=== PATIENT | male | born 1965 | race Hispanic/Latino ===

== ENCOUNTER 2018-06-18 07:31 | Day surgery (SDC) | payer BC ==
[2018-06-10 14:30] VITALS: BMI 36.2
[2018-06-18] MEDS ORDERED: Propofol 10 mg/ml Inj (20 ML) ONE (10:02)
[2018-06-18] MEDS ORDERED: Lidocaine 1% Inj (20ml) ONE (10:03)
[2018-06-18] MEDS ORDERED: Etomidate 20 mg/10ml Inj IV ONE (10:21)
[2018-06-18] MEDS ORDERED: Midazolam 2 MG/2 ML VIAL ONE (10:22)
[2018-06-18] MEDS ORDERED: Sodium Chloride 0.9% 1,000 ML IV SCH (11:00)
[2018-06-18 14:57] VITALS: BP 126/69; PULSE 52; RESP 18; TEMP 97.8; O2SAT 99
== END 2018-06-18 12:03 | disposition home or self-care (01) ==
LOC: ENDO 07:31
PROVIDERS: ATTEND Internal Medicine Gastroenterology
DX: K21.0 Gastro-esophageal reflux disease with esophagitis (principal); Z12.11 Encounter for screening for malignant neoplasm of colon; K63.5 Polyp of colon; K29.70 Gastritis, unspecified, without bleeding; K31.7 Polyp of stomach and duodenum; K57.30 Diverticulosis of large intestine without perforation or abscess without bleeding; K64.1 Second degree hemorrhoids
CPT/HCPCS: 43239; 45380; 45385; 88305; 88312; 88342; J2250; J2704; J7030; J7040